=== PATIENT | female | born 1980 | race Caucasian/White ===

== ENCOUNTER 2016-12-25 09:19 | Emergency (ER) | payer OTHER ==
[~2016-12-25] VITALS: Ht 165.1 cm; Wt 63.0 kg
[~2016-12-25 09:19] MED LIST: Iron PO
[2016-12-25 09:33] VITALS: TEMP 36.3; Ht 165.1 cm; Wt 63.0 kg
[2016-12-25] MEDS ORDERED: IBUP-1050 PO (09:45)
[2016-12-25 10:22] LABS: URINE APPEARANCE CLEAR (CLEAR); URINE BILIRUBIN NEG (NEG); URINE COLOR YELLOW; URINE EPITHELIAL CELL AUTO >30 /lpf (0-5); URINE NITRITE NEG (NEG); URINE SPECIFIC GRAVITY 1.029 (1.000-1.030); UROBILINOGEN NEG (NEG); ZZUR CULT IF INDIC CLEAN CATCH NO
[2016-12-25 10:27] LABS: HEMATOCRIT 37.4 % (37-47); MEAN CELL VOLUME 79.1 fL (80-100); MEAN CORPUSCULAR HEMOGLOBIN 26.2 pg (25-34); MEAN CORPUSCULAR HGB CONC 33.2 g/dl (32-36); MEAN PLATELET VOLUME 10.3 fL (7.4-10.4); PLATELET COUNT 182 K/uL (130-400); RED BLOOD COUNT 4.73 M/uL (4.2-5.4); WHITE BLOOD COUNT 8.26 K/uL (4.8-10.8)
[2016-12-25 10:27] LABS: MANUAL MICROSCOPIC REQUIRED? NO; REVIEW REQ? NO
[2016-12-25] MEDS ORDERED: HYDROmorphone INJ 0.5 MG/0.5 ML SYR IV STA (10:28)
[2016-12-25] MEDS ORDERED: ONDANSETRON 8 MG/54 ML D5W IV STA (10:28)
[2016-12-25 10:42] LABS: ALT/SGPT 10 U/L (12-78); AST/SGOT 10 U/L (15-37); BLOOD UREA NITROGEN 12 mg/dl (7-18); BUN/CREATININE RATIO 12.6 (10-20); CALCIUM 8.5 mg/dl (8.5-10.1); CARBON DIOXIDE 27 mmol/L (21-32); CHLORIDE 108 mmol/L (98-107); CREATININE 0.93 mg/dl (0.60-1.20); GLUCOSE 128 mg/dl (70-99); POTASSIUM 4.2 mmol/L (3.5-5.1); SODIUM 140 mmol/L (136-145)
[2016-12-25 10:44] LABS: ALKALINE PHOSPHATASE 86 U/L (45-117)
[2016-12-25 10:51] LABS: BASO % 0.1 %; BASO ABS # 0.01 K/uL (0-0.2); COMPLETE YES; EOS % 0.2 %; IG% 0.1 %; LYMPH % 10.2 %; LYMPH ABS # 0.84 K/uL (1.2-3.4); MONO % 4.7 %; NEUT % 84.7 %
[2016-12-25] MEDS ORDERED: KETOROLAC TROMETHAMINE 30 MG/ML VIAL IV STA (11:08)
[2016-12-25] MEDS ORDERED: HYDROmorphone INJ 0.5 MG/0.5 ML SYR IV PRN (11:15)
--- NOTE | 2016-12-25 12:33 | DIAGNOSTIC IMAGING REPORT ---
ABDOMEN AND PELVIS CT WITHOUT CONTRAST CT DOSE: 481.37 mGy.cm HISTORY: right flank pain, hematuria TECHNIQUE: Multiaxial CT images of the abdomen and pelvis were performed without the use of intravenous and oral contrast according to the standard department stone protocol. COMPARISON STUDY: None. FINDINGS: Mild right perinephric edema. Mild right hydronephrosis. There is a punctate stone within the lower pole the right kidney. No left renal calculi or hydronephrosis. There is a 3 m stone at the distal right ureter adjacent to the ureterovesical junction on image 153. The bladder is unremarkable. The uterus and ovaries are within normal limits. Trace pelvic free fluid. This may be physiologic. Suboptimal evaluation for bowel pathology due to the lack of intravenous and oral contrast. However, there is no definite bowel wall thickening or obstruction. Normal appendix. The lung bases are clear. A 5 mm hypodense lesion within the right hepatic lobe is too small to characterize. The unenhanced spleen, adrenal glands, and pancreas are unremarkable. No retroperitoneal lymphadenopathy. IMPRESSION: 1. A 3 mm obstructing distal right ureteral stone resulting in mild right hydronephrosis. 2. Right-sided nephrolithiasis. 3. Normal appendix. Electronically signed by: Johnathan Barajas M.D. 12/25/2016 12:31 PM Dictated Date/Time: 12/25/2016 12:27 PM
[2016-12-25] MEDS ORDERED: OXYC1TAB3 PO (12:55)
[2016-12-25] MEDS ORDERED: PROM25TA9 PO (12:55)
[2016-12-25 13:21] VITALS: BP 113/71; PULSE 65; O2SAT 99
--- NOTE | 2016-12-25 17:34 | EMERGENCY ROOM VISIT NOTE ---
History Report prepared by Randa: Gilbert Uriostegui Under the Supervision of: Dr. Tarun Rivera M.D. First contact with patient: 09:56 Chief Complaint: URINARY SYMPTOMS Stated Complaint: BACK PAIN Nursing Triage Summary: pt reports awaking this am and having lower back pain urine was cloudy and pt has frequency History of Present Illness The patient is a 36 year old female who presents to the Emergency Room with complaints of constant right sided lower back pain that started this morning. She rates her discomfort an 9/10. Associated symptoms include nausea, vomiting , cloudy urine and worsening urine frequency that started a week ago. Patient denies any significant past medical history. She notes that her sister has a history of kidney stones. Pt denies LOC, headache, fevers, chills, diaphoresis, visual changes, neck pain , chest pain, breathing difficulties, melena, hematochezia, numbness, weakness, lymphadenopathy, rash, or other complaints. Source of History: patient Onset: This morning Position: back Symptom Intensity: 9/10 Timing: constant Modifying Factors (Relieving): other (None) Associated Symptoms: + nausea, + urinary symptoms, + vomiting, No chest pain , No diarrhea, No headache, No hematochezia, No lymphadenopathy, No melena, No numbness, No rash, No weakness Review of Systems See HPI for pertinent positives and negatives. A total of ten systems were reviewed and were otherwise negative. Past Medical & Surgical Medical Problems: (1) No chronic problems Family History Kidney stones Social History Smoking Status: Never Smoker Alcohol Use: none Drug Use: none Occupation Status: unemployed Current/Historical Medications Scheduled Ibuprofen (Advil), 200 MG PO DIRECTED Scheduled PRN Oxycodone Ir (Roxicodone Ir), 1-2 TAB PO Q4H PRN for Pain Promethazine Hcl (Phenergan), 25 MG PO Q6H PRN for Nausea Allergies Coded Allergies: No Known Allergies (Verified , 12/25/16) Physical Exam Vital Signs Date Time Temp Pulse Resp B/P Pulse Ox O2 Delivery O2 Flow Rate FiO2 12/25/16 13:21 65 18 113/71 99 12/25/16 10:59 70 18 116/77 100 Room Air 12/25/16 09:33 36.3 79 20 112/76 100 Room Air Physical Exam GENERAL: Awake, alert, uncomfortable appearing. HENT: Normocephalic, atraumatic. Oropharynx unremarkable. EYES: Normal conjunctiva. Sclera non-icteric. NECK: Supple. No nuchal rigidity. FROM. No JVD. RESPIRATORY: Clear to auscultation. CARDIAC: Regular rate, normal rhythm. Extremities warm and well perfused. Pulses equal. ABDOMEN: Soft, non-distended. No tenderness to palpation. No rebound or guarding. No masses. RECTAL: Deferred. MUSCULOSKELETAL: Right CVA tenderness noted to palpation. Chest examination reveals no tenderness. The back is symmetrical on inspection without obvious abnormality. No joint edema. LOWER EXTREMITIES: Calves are equal size bilaterally and non-tender. No edema. No discoloration. NEURO: Normal sensorium. No sensory or motor deficits noted. SKIN: No rash or jaundice noted. Medical Decision & Procedures ER Provider Diagnostic Interpretation: CT results as stated below per my review and radiologist interpretation ABDOMEN AND PELVIS CT WITHOUT CONTRAST CT DOSE: 481.37 mGy.cm HISTORY: right flank pain, hematuria TECHNIQUE: Multiaxial CT images of the abdomen and pelvis were performed without the use of intravenous and oral contrast according to the standard department stone protocol. COMPARISON STUDY: None. FINDINGS: Mild right perinephric edema. Mild right hydronephrosis. There is a punctate stone within the lower pole the right kidney. No left renal calculi or hydronephrosis. There is a 3 m stone at the distal right ureter adjacent to the ureterovesical junction on image 153. The bladder is unremarkable. The uterus and ovaries are within normal limits. Trace pelvic free fluid. This may be physiologic. Suboptimal evaluation for bowel pathology due to the lack of intravenous and oral contrast. However, there is no definite bowel wall thickening or obstruction. Normal appendix. The lung bases are clear. A 5 mm hypodense lesion within the right hepatic lobe is too small to characterize. The unenhanced spleen, adrenal glands, and pancreas are unremarkable. No retroperitoneal lymphadenopathy. IMPRESSION: 1. A 3 mm obstructing distal right ureteral stone resulting in mild right hydronephrosis. 2. Right-sided nephrolithiasis. 3. Normal appendix. Electronically signed by: Johnathan Barajas M.D. 12/25/2016 12:31 PM Dictated Date/Time: 12/25/2016 12:27 PM Laboratory Results 12/25/16 10:15 Red Blood Count 4.73, Mean Corpuscular Volume 79.1, Mean Corpuscular Hemoglobin 26.2, Mean Corpuscular Hemoglobin Concent 33.2, Mean Platelet Volume 10.3, Neutrophils (%) (Auto) 84.7, Lymphocytes (%) (Auto) 10.2, Monocytes (%) (Auto) 4.7, Eosinophils (%) (Auto) 0.2, Basophils (%) (Auto) 0.1, Neutrophils # (Auto) 6.99, Lymphocytes # (Auto) 0.84, Monocytes # (Auto) 0.39, Eosinophils # (Auto) 0.02, Basophils # (Auto) 0.01 12/25/16 10:15 Test 12/25/16 10:00 12/25/16 10:15 Urine Color YELLOW Urine Appearance CLEAR (CLEAR) Urine pH 5.0 (4.5-7.5) Urine Specific Olivia 1.029 (1.000-1.030) Urine Protein NEG (NEG) Urine Glucose (UA) NEG (NEG) Urine Ketones 2+ (NEG) Urine Occult Blood 2+ (NEG) Urine Nitrite NEG (NEG) Urine Bilirubin NEG (NEG) Urine Urobilinogen NEG (NEG) Urine Leukocyte Esterase NEG (NEG) Urine WBC (Auto) 5-10 /hpf (0-5) Urine RBC (Auto) 10-30 /hpf (0-4) Urine Hyaline Casts (Auto) 5-10 /lpf (0-5) Urine Epithelial Cells (Auto) >30 /lpf (0-5) Urine Bacteria (Auto) NEG (NEG) Urine Test NEG (NEG) White Blood Count 8.26 K/uL (4.8-10.8) Red Blood Count 4.73 M/uL (4.2-5.4) Hemoglobin 12.4 g/dL (12.0-16.0) Hematocrit 37.4 % (37-47) Mean Corpuscular Volume 79.1 fL (80-100) Mean Corpuscular Hemoglobin 26.2 pg (25-34) Mean Corpuscular Hemoglobin Concent 33.2 g/dl (32-36) Platelet Count 182 K/uL (130-400) Mean Platelet Volume 10.3 fL (7.4-10.4) Neutrophils (%) (Auto) 84.7 % Lymphocytes (%) (Auto) 10.2 % Monocytes (%) (Auto) 4.7 % Eosinophils (%) (Auto) 0.2 % Basophils (%) (Auto) 0.1 % Neutrophils # (Auto) 6.99 K/uL (1.4-6.5) Lymphocytes # (Auto) 0.84 K/uL (1.2-3.4) Monocytes # (Auto) 0.39 K/uL (0.11-0.59) Eosinophils # (Auto) 0.02 K/uL (0-0.5) Basophils # (Auto) 0.01 K/uL (0-0.2) RDW Standard Deviation 50.8 fL (36.4-46.3) RDW Coefficient of Variation 17.8 % (11.5-14.5) Immature Granulocyte % (Auto) 0.1 % Immature Granulocyte # (Auto) 0.01 K/uL (0.00-0.02) Red Blood Cell Morphology Unremarkable Anion Gap 5.0 mmol/L (3-11) Est Creatinine Clear Calc Drug Dose 74.5 ml/min Estimated GFR () 91.0 Estimated GFR (Non- 78.5 BUN/Creatinine Ratio 12.6 (10-20) Calcium Level 8.5 mg/dl (8.5-10.1) Total Bilirubin 0.3 mg/dl (0.2-1) Direct Bilirubin < 0.1 mg/dl (0-0.2) Aspartate Amino Transf (AST/SGOT) 10 U/L (15-37) Alanine Aminotransferase (ALT/SGPT) 10 U/L (12-78) Alkaline Phosphatase 86 U/L (45-117) Total Protein 8.2 gm/dl (6.4-8.2) Albumin 4.2 gm/dl (3.4-5.0) Lipase 271 U/L (73-393) Laboratory results reviewed by me Medications Administered Medications (Trade) Dose Ordered Sig/Abigail Route Start Time Stop Time Status Last Admin Dose Admin Ondansetron HCl (Zofran 8mg Iv) 8 mg NOW STAT IV 12/25/16 10:28 12/25/16 10:29 DC 12/25/16 10:44 8 MG Hydromorphone HCl (Dilaudid Inj) 0.5 mg NOW STAT IV 12/25/16 10:28 12/25/16 10:29 DC 12/25/16 10:43 0.5 MG Ketorolac Tromethamine (Toradol Inj) 10 mg NOW STAT IV 12/25/16 11:08 12/25/16 11:09 DC 12/25/16 12:01 10 MG Hydromorphone HCl (Dilaudid Inj) 0.5 mg Q15M PRN IV 12/25/16 11:15 12/25/16 13:36 DC 12/25/16 11:11 0.5 MG ED Course 1026: The patient was evaluated in room C10. A complete history and physical exam was performed. 1028: Ordered Dilaudid Injection 0.5 mg IV, Zofran 8 mg IV. 1108: Ordered Toradol Injection 10 mg IV. 1115: Ordered Dilaudid Injection 0.5 mg IV. 1140: Upon reevaluation, the patient is doing a little better. 1245: I reevaluated the patient, she is resting more comfortably. Discussed results and discharge instructions: She verbalized understanding and agreement. The patient is ready for discharge. Medical Decision Prior records/ancillary studies reviewed. Triage Nursing notes reviewed and agree them. Additional history obtained from the family. The patient's history was concerning for flank and abdominal pain. Differential diagnosis: Etiologies such as renal colic, appendicitis, diverticulitis, mesenteric ischemia, aortic pathology, infections, inflammatory bowel disease, PUD, biliary pathology, UTI, as well as others were entertained. Physical examination findings: As above. ER treatment provided: IV Zofran IV Dilaudid IV Toradol On reassessment the patient felt much better. Diagnostic interpretation by me: The labs revealed an unremarkable CBC and chemistry panel. Urinalysis revealed hematuria. There was no sign of UTI. Imaging studies: CT of the abdomen and pelvis as above. It appears that the patient has isolated renal colic from a 3 mm right-sided stone. By the evaluation outlined above emergent etiologies such as appendicitis, diverticulitis, mesenteric ischemia, aortic pathology, infections, inflammatory bowel disease, PUD, biliary pathology, UTI, as well as others were deemed relatively unlikely. The patient and were informed about the findings as listed above. All questions were answered and they were pleased with the treatment. Return instructions were outlined and the patient was discharged in stable condition. Outpatient prescription management: Oxy IR 5mg 1-2 po Q4 hrs prn Phenergan Referral: The pt was referred to [facility] for follow up care regarding their stone. The chart was completed utilizing [employer] Speech voice recognition software. Grammatical errors, random word insertions, pronoun errors, and incomplete sentences are an occasional consequence of this system due to software limitations, ambient noise, and hardware issues. Any formal questions or concerns about the content, text, or information contained within the body of this dictation should be directly addressed to the physician for clarification. Impression Primary Impression: Kidney stone Scribe Attestation The scribe's documentation has been prepared under my direction and personally reviewed by me in its entirety. I confirm that the note above accurately reflects all work, treatment, procedures, and medical decision making performed by me. Departure Information Dispostion Home / Self-Care Prescriptions Promethazine Hcl (Phenergan) 25 Mg Tab 25 MG PO Q6H Y for Nausea, #10 TAB Prov: Tarun Rivera MD 12/25/16 Oxycodone Ir (Roxicodone Ir) 5 Mg Tab 1-2 TAB PO Q4H Y for Pain, #15 TAB Prov: Tarun Rivera MD 12/25/16 Referrals Juan Reddy M.D. (PCP) Forms HOME CARE DOCUMENTATION FORM, IMPORTANT VISIT INFORMATION Patient Instructions My [facility] Additional Instructions KIDNEY STONE INSTRUCTIONS: Oxycodone Immediate Release (OxyIR) 5mg: Take 1-2 pills every four hours for pain. Avoid alcohol, operating machinery or dangerous equipment, working on ladders or roofs, DRIVING, or situations where being under the influence may be dangerous. It is recommended to use an [id number] stool softener such as Colace, 100mg twice daily while taking this medication to avoid constipation. Phenergan 25mg: Take one every six hours as needed for nausea. Avoid alcohol, operating machinery or dangerous equipment, working on ladders or roofs, DRIVING , or situations where being under the influence may be dangerous. Ibuprofen(Motrin, Advil) may be used for fever or pain. Use 600mg every six hours as needed. Take with food. Avoid using more than 2400mg in a 24 hour period. Do not use 2400mg per day for more than three consecutive days without physician direction. Prolonged inappropriate use can lead to stomach upset or ulcers. This medication can be taken if you need to drive, work, or perform activities which may be dangerous when taking narcotic pain medication. (AND/OR) Acetaminophen(Tylenol) may be used for fever or pain. Use 1000mg every six hours as needed. Avoid using more than 4000mg in a 24 hour period. This medication can be taken if you need to drive, work, or perform activities which may be dangerous when taking narcotic pain medication. Strain your urine and collect all the stones or debris for the urologists. Rest and avoid strenuous activity until your stone passes and symptoms resolve. Drink plenty of fluids. Return to the ER for worsening abdominal or back pain, vomiting, fevers, passing out, or as needed. Follow up with [facility] Tuesday, [phone], to arrange a visit.
== END 2016-12-25 13:23 | disposition home or self-care (01) ==
LOC: C.EDB 09:22 → C.EDC 13:23
DX: N20.0 Calculus of kidney (principal); R11.2 Nausea with vomiting, unspecified; R35.0 Frequency of micturition; Z84.1 Family history of disorders of kidney and ureter

== ENCOUNTER → 2017-09-27 | Outpatient (CLI) | payer OTHER ==
[~2017-09-27] MED LIST changes: +IBUP-1050 PO; -Iron PO
[2017-09-27 16:47] LABS: BASO % 0.5 %; BASO ABS # 0.04 K/uL (0-0.2); EOS % 2.6 %; EOS ABS # 0.21 K/uL (0-0.5); HEMATOCRIT 40.5 % (37-47); HEMOGLOBIN 13.3 g/dL (12.0-16.0); IG# 0.01 K/uL (0.00-0.02); LYMPH % 25.3 %; LYMPH ABS # 2.04 K/uL (1.2-3.4); MEAN CELL VOLUME 87.3 fL (80-100); MEAN CORPUSCULAR HEMOGLOBIN 28.7 pg (25-34); MEAN CORPUSCULAR HGB CONC 32.8 g/dl (32-36); MEAN PLATELET VOLUME 11.3 fL (7.4-10.4); MONO % 7.4 %; NEUT % 64.1 %; NEUT ABS # 5.16 K/uL (1.4-6.5); PLATELET COUNT 227 K/uL (130-400); RED CELL DISTRIBUTION WIDTH CV 13.9 % (11.5-14.5); WHITE BLOOD COUNT 8.06 K/uL (4.8-10.8)
[2017-09-27 17:07] LABS: ALBUMIN 4.2 gm/dl (3.4-5.0); ALKALINE PHOSPHATASE 86 U/L (45-117); ALT/SGPT 11 U/L (12-78); AST/SGOT 13 U/L (15-37); BLOOD UREA NITROGEN 11 mg/dl (7-18); CARBON DIOXIDE 28 mmol/L (21-32); CREATININE 0.75 mg/dl (0.60-1.20); GLUCOSE 84 mg/dl (70-99); POTASSIUM 3.8 mmol/L (3.5-5.1); SODIUM 135 mmol/L (136-145); TOTAL PROTEIN 8.5 gm/dl (6.4-8.2)
== END | disposition home or self-care (01) ==
LOC: C.LABBFT 14:12
PROVIDERS: ATTEND Nurse Practitioner
DX: R42 Dizziness and giddiness (principal)

== ENCOUNTER → 2018-01-25 | Outpatient (CLI) | payer OTHER ==
[2018-01-25 17:07] LABS: ALBUMIN 4.1 gm/dl (3.4-5.0); ALKALINE PHOSPHATASE 83 U/L (45-117); ALT/SGPT 12 U/L (12-78); AST/SGOT 16 U/L (15-37); BLOOD UREA NITROGEN 10 mg/dl (7-18); CALCIUM 8.7 mg/dl (8.5-10.1); CARBON DIOXIDE 30 mmol/L (21-32); CREATININE 0.76 mg/dl (0.60-1.20); GLUCOSE 84 mg/dl (70-99); SODIUM 138 mmol/L (136-145); TOTAL PROTEIN 8.2 gm/dl (6.4-8.2)
== END | disposition home or self-care (01) ==
LOC: C.LABBFT 14:12
PROVIDERS: ATTEND Internal Medicine
DX: R42 Dizziness and giddiness (principal); K11.7 Disturbances of salivary secretion

== ENCOUNTER → 2018-04-05 | Outpatient (CLI) | payer OTHER | END | disposition home or self-care (01) | LOC: C.PAPS 18:00 | PROVIDERS: ATTEND Obstetrics & Gynecology | DX: Z12.4 Encounter for screening for malignant neoplasm of cervix (principal) ==